=== PATIENT | female | born 1965 | race African-American/Black ===

== ENCOUNTER 2025-07-11 14:07 | Outpatient (AMB) | payer OTHER, SELFPAY ==
--- OUTSIDE RECORDS SUMMARY | 2025-07-10 23:59 | XMS_ITS | Continuity of Care Document ---
Author Organization [facility] Address [address] [place] [id number]- Care Team Providers Care Hand Stamper Name Role Phone Not on Staff, PCP Primary Care Physician Unavail able [place] [facility] [place] - 07/10/[address] [address]- Attending Physician: Johnathan Mclaughlin DO Admitting Physician: Johnathan Mclaughlin DO Referring Physician: Yamila Bruno DO Encounter Type: Pre-OutPatient One Time Allergies, Adverse Reactions, Alerts No Known Medication Allergies Medications Acetaminophen = 650 mg, By Mouth, Every 6 hours, PRN Pain , Mild, 0 Refills, Maintenance, 05/21/25 5:09:00 AM EST,Partial fill upon patient request if the prescription is for a schedule II opioid drug. Start Date: 05/21/25 Status: Ordered Medication Dispense Status: Completed Total Allowed Fills: 1 Fills Dispensed: 0 amiodarone 200 mg oral tablet See Instructions, 400 mg By Mouth 2 times a day until 06/06, then 200 mg by mouth daily., Refills 0, Maintenance, 06/04/25 1:03:00 PM EST, Instructions Replace Required Details, Partial fill upon patient request if the prescription is for a schedule II opioid drug. Start Date: 06/04/25 Status: Ordered Medication Dispense Status: Completed Total Allowed Fills: 1 Fills Dispensed: 0 Ammonium Lactate 12% 1 application, Topically, Daily in AM, 0 Refills, Maintenance, 05/21/25 5:10:00 AM EST, Partial fillupon patient request if the prescription is for a schedule II opioid drug. Start Date: 05/21/25 Status: Ordered Medication Dispense Status: Completed Total Allowed Fills: 1 Fills Dispensed: 0 apixaban 5 mg oral tablet 1 tablet = 5 mg, By Mouth, 2 times a day, # 60 tablet, 0 Refills, Maintenance, 05/21/25 1:00:00 AM EST, Tablet, Partial fill upon patient request if the prescription is for a schedule II opioid drug. Start Date: 05/21/25 Status: Ordered Medication Dispense Status: Completed Quantity: 60.0 Unit: tablet Total Allowed Fills: 1 Fills Dispensed: 0 atorvastatin 40 mg oral tablet 1 tablet = 40 mg, By Mouth, Daily, # 30 tablet, 5 Refills, Maintenance, 05/21/25 1:01:00 AM EST, Tablet, Partial fill upon patient request if the prescription is for a schedule II opioid drug. Start Date: 05/21/25 Status: Ordered Medication Dispense Status: Completed Quantity: 30.0 Unit: tablet Total Allowed Fills: 1 Fills Dispensed: 0 cholecalciferol 1000 intl units oral capsule 1 capsule = 25 mcg, By Mouth, Daily, # 75 capsule, 0 Refills, Maintenance, 05/21/25 1:01:00 AM EST, Capsule, Partial fill upon patient request if the prescription is for a schedule II opioid drug. Start Date: 05/21/25 Status: Ordered Medication Dispense Status: Completed Quantity: 75.0 Unit: capsule Total Allowed Fills: 1 Fills Dispensed: 0 cyanocobalamin 1000 mcg oral tablet 1,000 mcg, 1, tablet, By Mouth, Daily, # 90 tablet, Refills 0, Maintenance, 05/21/25 1:01:00 AM EST,Partial fill upon patient request if the prescription is for a schedule II opioid drug. Start Date: 05/21/25 Status: Ordered Medication Dispense Status: Completed Quantity: 90.0 Unit: tablet Total Allowed Fills: 1 Fills Dispensed: 0 dapagliflozin 10 mg oral tablet 1 tablet = 10 mg, By Mouth, Daily, # 30 tablet, 0 Refills, Maintenance, 05/21/25 1:02:00 AM EST, Tablet, Partial fill upon patient request if the prescription is for a schedule II opioid drug. Start Date: 05/21/25 Status: Ordered Medication Dispense Status: Completed Quantity: 30.0 Unit: tablet Total Allowed Fills: 1 Fills Dispensed: 0 diclofenac 1% topical gel See Instructions, 4g Topically Every 8 hours left knee, 0 Refills, Maintenance, 05/21/25 5:12:00 AM EST, Partial fill upon patient request if the prescription is for a schedule II opioid drug. Start Date: 05/21/25 Status: Ordered Medication Dispense Status: Completed Total Allowed Fills: 1 Fills Dispensed: 0 magnesium oxide 400 mg oral capsule 1 capsule = 400 mg, By Mouth, Daily at bedtime, 0 Refills, Maintenance, 05/21/25 5:14:00 AM EST, Partial fill upon patient request if the prescription is for a schedule II opioid drug. Start Date: 05/21/25 Status: Ordered Medication Dispense Status: Completed Total Allowed Fills: 1 Fills Dispensed: 0 metFORMIN 1000 mg oral tablet 1 tablet = 1,000 mg, By Mouth, Daily, # 180 tablet, 0 Refills, Maintenance, 07/08/25 5:53:00 PM EST, Tablet, Partial fill upon patient request if the prescription is for a schedule II opioid drug. Start Date: 07/08/25 Status: Ordered Medication Dispense Status: Completed Quantity: 180.0 Unit: tablet Total Allowed Fills: 1 Fills Dispensed: 0 Miconazole 2% Topical Powder 1 application, Topically, Daily, 0 Refills, Maintenance Start Date: 05/21/25 Status: Ordered Medication Dispense Status: Completed Total Allowed Fills: 1 Fills Dispensed: 0 Milk of Magnesia 30 mL, By Mouth, Daily, PRN as needed for constipation, 0 Refills, Maintenance, 05/21/25 5:16:00 AM EST, Partial fill upon patient request if the prescription is for a schedule II opioid drug. Start Date: 05/21/25 Status: Ordered Medication Dispense Status: Completed Total Allowed Fills: 1 Fills Dispensed: 0 Potassium Chloride = 20 mEq, By Mouth, Daily, liquid, 0 Refills, Maintenance, 05/21/25 5:17:00 AM EST, Partial fill upon patient request if the prescription is for a schedule II opioid drug. Start Date: 05/21/25 Status: Ordered Medication Dispense Status: Completed Total Allowed Fills: 1 Fills Dispensed: 0 spironolactone 25 mg oral tablet 25 mg, By Mouth, Daily, Refills 0, Maintenance, 06/04/25 1:03:00 PM EST, Partial fill upon patient request if the prescription is for a schedule II opioid drug. Start Date: 06/04/25 Status: Ordered Medication Dispense Status: Completed Total Allowed Fills: 1 Fills Dispensed: 0 torsemide 20 mg oral tablet 2 tablet = 40 mg, By Mouth, Daily, 0 Refills, Maintenance, 06/04/25 1:04:00 PM EST, Tablet, Partialfill upon patient request if the prescription is for a schedule II opioid drug. Start Date: 06/04/25 Status: Ordered Medication Dispense Status: Completed Total Allowed Fills: 1 Fills Dispensed: 0 Problem List Condition Confirmation Course Effective Dates Status Health St atus Informant Severe obesity Confirmed Active Social History Social History Type Response Smoking Status Never (less than 100 in lifetime); Interested in cessation: No; Patient wants NRT during admission No entered on: 05/21/25 Sexual Orientation Self described orien tation: ; Straight or heterosexual Sex Sex Representation Female (finding) Patient Care team information Care Team Personnel Name: Tonya Solis RN Position: [facility] RN Member Role: Primary Care Nurse Name: Not on Staff, PCP Position: [facility] Physician (General Medicine) Member Role: PCP Name: Anay Joseph RN Position: [facility] RN Member Role: Primary Care Nurse Care Team Related Persons Name: TONYA QUARLES Name: RISSA SORENSON Insurance Providers Guarantor name: Health Plan Information #: 1 [facility]ayer[facility] Payer Identifier: NA Member Number: [id number] Group Number: [id number] Subscriber Identifier: [id number] Relationship to Subscriber: self Coverage Type: Managed Care (Private) Coverage Verification Date: LYNETTE Telecom: NA Address: Health Plan Information #: 2 Payer: [employer] Payer Identifier: Member Number: [id number] Group Number: Subscriber Identifier: Relationship to Subscriber: self Coverage Type: MEDICAID Coverage Verification Date: LYNETTE Telecom: Address:
--- OUTSIDE RECORDS SUMMARY | 2025-07-10 23:59 | XMS_ITS | Continuity of Care Document ---
Author Organization [facility] Address [address] [place] [phone]- Care Team Providers Care Industrial Education Teacher Name Role Phone Not on Staff, PCP Primary Care Physician Unavail able Encounter [facility] – [place] Date(s): 06/10/25 - 07/10/[address] [address]- Attending Physician: Shmuel Barragan Admitting Physician: Shmuel Barragan Referring Physician: Shmuel Barragan Encounter Type: Triage Allergies, Adverse Reactions, Alerts No Known Medication [...] Team Personnel Name: Tonya Solis RN Position: [facility] RN Member Role: Primary Care Nurse Name: Not on Staff, PCP Position: [facility] Physician (General Medicine) Member Role: PCP Name: Anay Joseph RN Position: [facility] RN Member Role: Primary Care Nurse Care Team Related Persons Name: TONYA QUARLES Name: RISSA SORENSON Insurance Providers Guarantor name: LYNETTE Health Plan Information #: 1 Payer: [employer] HMO POS Payer Identifier: LYNETTE Member Number: [id number] Group Number: [id number] Subscriber Identifier: LYNETTE Relationship to Subscriber: self Coverage Type: Managed Care (Private) Coverage Verification Date: Telecom: Address: [facility] Plan Information #: 2 Payer: [employer] Payer Identifier: LYNETTE Member Number: [id number] Group Number: Subscriber Identifier: LYNETTE Relationship to Subscriber: self Coverage Type: MEDICAID Coverage Verification Date: Telecom: Address:
--- NOTE | 2025-07-11 14:13 | A.OFFPC_ITS ---
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 by: Self / Same As Patient Allergies No Known Allergies Allergy (Verified 07/11/25 14:14) Medication List - Last Reconciled 07/11/25 by Jeremias Harris MD amiodarone 200 mg PO DAILY apixaban (Eliquis) 5 mg PO BID atorvastatin 40 mg PO DAILY dapagliflozin propanediol (Farxiga) 10 mg PO DAILY magnesium oxide 400 mg PO DAILY metformin 1,000 mg PO DAILY metoprolol succinate ER 50 mg PO BID potassium chloride ER 20 mEq PO DAILY spironolactone 25 mg PO DAILY torsemide 20 mg PO DAILY Tobacco use date assessed: 07/11/25 Dental Screening Dental Screen Date: 07/11/25 Did you have a dental visit in the last 12 months?: Yes Did you have a dental problem in the last 6 months where you did not have access to dental care?: Yes Was dental information given to patient?: Patient has dentist HPI HPI Comments History of Present Illness Details History of Present Illness The patient is a 59-year-old female presenting to establish care with a primary care physician. Atrial Fibrillation: The patient was diagnosed with atrial fibrillation after she fell while trying to get into a truck in the [facility]. She has a cardioversion scheduled for the . Her medications for this condition include amiodarone, which was started at [facility] and continued at [facility], and apixaban (Eliquis), a blood thinner she has been taking for months. Gait Instability/History of Fall: The patient experienced a fall due to knee weakness, which prompted her initial hospitalization in the [facility]. This event led to a series of hospitalizations and rehabilitation stays in the [facility], [place], and [place] over a period of several months. She was sent to rehab because she was unable to walk. She now walks with a walker but cannot manage long distances and is unable to get into the shower at home. A diagnosis of osteoarthritis of the bilateral knees was mentioned. The patient is hoping to get home physical therapy to improve strength and mobility. Postmenopausal Bleeding: The patient, who is 59 years old, reports the onset of vaginal bleeding since Friday, which is not heavy. She is due for a Pap smear. Type 2 Diabetes Mellitus: The patient has a history of diabetes, which pre-existed her AFib diagnosis. Her medications include Farxiga 10 mg and metformin 1000 mg, though she is currently out of her metformin. Hypertension: The patient has a history of high blood pressure, which existed prior to her AFib diagnosis. She takes metoprolol succinate and has received conflicting instructions on whether to take it once or twice daily. Epistaxis: The patient has experienced nosebleeds [place]. The bleeding is intermittent and more pronounced in the morning upon waking. She uses Vicks to help moisturize her nasal passages. Dysgeusia: For the past two months, the patient has experienced a loss of taste, which has resulted in a poor appetite. This symptom started around the time she was in [place]. Constipation: The patient reports a long-standing history of constipation for years, with bowel movements occurring every two to three days. She manages this by drinking prune juice. Surgical History: - No prior surgical history reported. Medications: - Amiodarone 200 mg for atrial fibrillat ion - Apixaban (Eliquis) for atrial fibrilla tion - Atorvastatin 40 mg for high cholestero l - Farxiga 10 mg for diabetes - Magnesium oxide - Metformin 1000 mg for diabetes (rashid jones is currently out of this medication) - Metoprolol succinate for hypertension - Potassium chloride 20 mg for hypokalem ia - Torsemide (water pill) - Spironolactone (water pill) Social History: - The patient denies any history of smok ing or alcohol use. - The patient has good social support fr om her , son, and [id number]. - Functional Status: The patient uses a walker for mobility but is unable to walk long distances. - She requires sponge baths as she is un able to lift her feet high enough to get into her shower. - Durable Medical Equipment: She has a c ommode, a walker, and a wheelchair at home. - [facility] Diagnostic Results: - Mammogram: Completed in January. - Cologuard: Completed in January, results were negative. - DEXA scan: Has not been performed. Past Medical History - Atrial Fibrillation, diagnosed after a fall. - Hypertension. - Type 2 Diabetes Mellitus. - Osteoarthritis of bilateral knees. - History of ascites, treated with diure tics. - History of hypokalemia. - Multiple recent hospitalizations and r ehabilitation stays in the [facility], [place], and [place] for debility and medical management following a fall. Health Maintenance - The patient is here to establish care with a primary care physician. - The patient is due for a Pap smear. - A mammogram was completed in January. - A Cologuard test was completed in January and was negative. - The patient needs to reschedule a slee p apnea study. - The patient desires weight management assistance, which will be addressed after acute issues are managed. [facility] Family History (Updated 07/11/25 @ 14:39 by Aren Andres MA) Father Hypoglycemia High blood pressure Mother A-fib Social History Housing: House Patient Tobacco Use Status: Never used Tobacco service: No Current occupational status: unemployed Cognitive needs: Yes Hearing needs: No Vision needs: Yes (reading glasses) Questionnaire PHQ-9 Over the last 2 weeks, how often have you been bothered by any of the following problems? 1. Little interest or pleasure in doing things: not at all 2. Feeling down, depressed, or hopeless: not at all 3. Trouble falling or staying asleep, or sleeping too much: not at all 4. Feeling tired or having little energy: not at all 5. Poor appetite or overeating: not at all 6. Feeling bad about yourself - or that you are a failure or have let yourself or your family down: not at all 7. Trouble concentrating on things, such as reading the newspaper or watching television: not at all 8. Moving or speaking so slowly that other people could have noticed. Or the opposite - being so fidgety or restless that you have been moving around a lot more than usual: not at all 9. Thoughts that you would be better off or of hurting yourself in some way: not at all Total score: 0 Depression Screening Interpretation: Negative Depression Screening Done: Yes Source: Developed by Drs. Anthony Lopez, Liliam BEugenio Watson and colleagues, with an educational kayleigh from [email or web address]. Thrive Questionnaire Date Thrive assessed: 07/11/25 I am a: Patient What is your living situation today?: I have a steady place to live Within the past 12 months, did the food you bought not last and you didn't have the money to get more?: Never true Within the past 12 months, did you worry whether your food would run out before you got money to buy more?: Never true Do you have trouble paying for medicines?: No Do you have trouble getting transportation to medical appointments?: No Do you have trouble paying your heating and electricity bill?: No Do you have trouble taking care of your child, family member or friend?: Yes Do you have trouble with day-to-day activities such as bathing, preparing meals, shopping, managing finances, etc.?: Yes Are you currently unemployed and looking for a job?: No Are you interested in more education?: Yes Please select the resources that you would like help with: None THRIVE Score: 0 AUDIT C Alcohol Use Questionnaire (AUDIT-C) 1. How often do you have a drink containing alcohol?: Never 3. How often do you have six or more drinks on one occasion?: Never Total Score: 0 IVETT-7 AMB Questionnaire IVETT-7 Date IVETT - 7 assessed: 07/11/25 Feeling nervous, anxious, or on edge: 0 = Not at all Not being able to stop or control worryin = Not at all Worrying too much about different things: 0 = Not at all Trouble relaxin = Not at all Being so restless that it is hard to sit still: 0 = Not at all Becoming easily annoyed or irritable: 0 = Not at all Feeling afraid as if something awful might happen: 0 = Not at all Total IVETT-7 score (0-4 normal; 5-9 mild; 10-14 moderate; 15-21 severe): 0 Source: Developed by Drs. Anthony Lopez, Eugenio Pierce and colleagues, with an educational kayleigh from [email or web address]. Review of Systems Narrative Review of Systems - Constitutional: Reports poor appetite. - HEENT: Reports intermittent epistaxis for the past month, more prominent in the morning. - Mouth: Reports dysgeusia for the past 2 months. - Cardiovascular: History of atrial fibrillation. - Gastrointestinal: Reports chronic constipation with bowel movements every 2-3 days, managed with prune juice. - Genitourinary: Reports new onset of light vaginal bleeding since Friday. - Musculoskeletal: Reports knee weakness, difficulty walking, and inability to lift feet to enter the shower. - Integumentary: Reports a non-healing scar on her leg. - Hematologic: Denies easy bruising or bleeding from gums. - Neurological: Denies pain. - Sleep: Reports her sleep is good now. 10-point ROS reviewed and negative except as noted in HPI Physical exam (Primary Care) Vital Signs: Last Vital Signs Temp 98.1 F 07/11/25 14:24 Pulse 100 07/11/25 14:24 Resp 16 07/11/25 14:24 BP 108/63 07/11/25 14:24 Pulse Ox 99 07/11/25 14:24 Oxygen Delivery Method Room Air 07/11/25 14:24 Tobacco/Smoking Status: Tobacco use Status Tobacco use date assessed 07/11/25 07/11/25 14:15 Patient Tobacco Use Status Never used Tobacco 07/11/25 14:15 PHQ-9: PHQ-9 Score PHQ-9: Total score 0 07/11/25 14:17 Depression Screening Interpretation: Negative Thrive Assessment: Date of Thrive Assessment Date Thrive assessed 07/11/25 07/11/25 14:17 Narrative Physical Exam General: Well-appearing, in no acute distress. Vital signs: Within normal limits. HEENT: Normocephalic, atraumatic. PERRLA, EOMI. Conjunctiva clear, sclera anicteric. Oropharynx clear, mucous membranes moist. TMs intact bilaterally. Noted dryness in nasal mucosa, recommend humidifier and Vaseline application. Neck: Supple, no lymphadenopathy, no thyromegaly, no JVD or carotid bruits. Cardiovascular: irregulary irregular, normal S1/S2, no murmurs, rubs, or gallops. Peripheral pulses 2+ and symmetric. No edema. Respiratory: Lungs clear to auscultation bilaterally, no wheezes, rales, or rhonchi. Normal effort. Abdomen: Soft, non-tender, non-distended. Normoactive bowel sounds. No hepatosplenomegaly, no masses. MSK: Full range of motion, no joint swelling or deformity. . Patient uses a walker for ambulation due to bilateral knee osteoarthritis. Skin: Warm, dry, intact. No rashes, lesions, or pallor. Neuro: Alert and oriented x3. Cranial nerves II-XII intact. Strength 5/5 throughout. Sensation intact. Reflexes 2+ symmetric. . Psych: Appropriate mood and affect. Normal judgment and insight. Coding Level of Care Code New Pt Level 4 (26409) Add On Problem Visit Only Diagnoses Atrial fibrillation I48.91 Gait instability R26.81 History of fall Z91.81 Postmenopausal bleeding N95.0 Vaginal bleeding N93.9 Thickening of toenail L60.2 Complex care coordination Z71.89 Diabetes type 2 E11.9 Hypertension I10 Epistaxis R04.0 Dysgeusia R43.2 Constipation K59.00 Poor appetite R63.0 Heart failure with reduced ejection fraction I50.20 Pulmonary hypertension I27.20 Aortic valve calcification I35.9 Calcification of mitral valve I34.81 Assessment & Plan Assessment & Plan (1) Atrial fibrillation: Code(s): I48.91 - Unspecified atrial fibrillation Category: Medical (2) Gait instability: Code(s): R26.81 - Unsteadiness on feet Category: Medical (3) History of fall: Code(s): Z91.81 - History of falling Category: Medical (4) Postmenopausal bleeding: Code(s): N95.0 - Postmenopausal bleeding Category: Medical (5) Vaginal bleeding: Code(s): N93.9 - Abnormal uterine and vaginal bleeding, unspecified Category: Medical (6) Thickening of toenail: Code(s): L60.2 - Onychogryphosis Category: Medical (7) Complex care coordination: Code(s): Z71.89 - Other specified counseling Category: Medical (8) Diabetes type 2: Code(s): E11.9 - Type 2 diabetes mellitus without complications Category: Medical (9) Hypertension: Code(s): I10 - Essential (primary) hypertension Category: Medical (10) Epistaxis: Code(s): R04.0 - Epistaxis Category: Medical (11) Dysgeusia: Code(s): R43.2 - Parageusia Category: Medical (12) Constipation: Code(s): K59.00 - Constipation, unspecified Category: Medical (13) Poor appetite: Code(s): R63.0 - Anorexia Category: Medical (14) Heart failure with reduced ejection fraction: Code(s): I50.20 - Unspecified systolic (congestive) heart failure Category: Medical (15) Pulmonary hypertension: Code(s): I27.20 - Pulmonary hypertension, unspecified Category: Medical (16) Aortic valve calcification: Code(s): I35.9 - Nonrheumatic aortic valve disorder, unspecified Category: Medical (17) Calcification of mitral valve: Code(s): I34.81 - Nonrheumatic mitral (valve) annulus calcification Category: Medical Plan Consent Verbal consent was obtained from the patient to take a picture of the wound on her leg to be included in her medical record. Patient was informed and verbally consented to the use of an ambient scribe for clinic note documentation during this visit. Plan 1. New Patient Visit / Health Maintenance - A comprehensive panel of baseline labs will be ordered, including a CBC, CMP, thyroid panel, hemoglobin A1c, lipid panel, B12, folate, vitamin D, hepatitis panel, HIV, syphilis, and urinalysis. - The patient will follow up in two weeks to review lab results and medical records. - Medication reconciliation and refills will be addressed at the follow-up visit after labs are reviewed. 2. Postmenopausal Bleeding - A transvaginal and pelvic ultrasound will be ordered to evaluate the bleeding. 3. Epistaxis - The patient was advised to use a humidifier and apply Vicks or Vaseline to her nostrils to moisturize the nasal mucosa. 4. Non-Healing Wound, Lower Extremity - A referral will be placed for Podiatry/Wound Care to evaluate and manage the non-healing wound on her leg. 5. Gait Instability And Deconditioning - A referral will be placed for a community nurse navigator to arrange for home resources, including home physical therapy and a professional nursing assistant. - A referral for an orthopedic consultation will be considered after a review of records and prior knee x-rays. 6. Polypharmacy/Medication Management - No refills for potassium, spironolactone, metformin, or Jardiance will be provided until lab results are available to ensure patient safety, specifically checking renal function and potassium levels. - The patient's medication list will be overhauled after reviewing lab results and medical records. 7. Constipation - The patient was advised she can continue her current management with prune juice. - A prescription for MiraLAX was sent for as-needed use. Discussion Notes I introduced myself to the patient and her [id number] for this new patient visit. Given her complex history and lack of available medical records, I explained that the first step is to get comprehensive baseline lab work to have up-to-date data. I elaborated on the importance of not refilling certain medications, particularly spironolactone and potassium, without knowing her current kidney function and electrolyte levels, explaining the potential dangers of hyperkalemia. We discussed her various symptoms, including the nosebleeds, which I attributed to dryness and recommended a humidifier and nasal moisturization. Regarding the new-onset vaginal bleeding, I explained it is very important to evaluate this and that I would order a pelvic and transvaginal ultrasound. I informed her that I will place a referral to the community nurse navigator to help arrange home health services like PT, and a referral to podiatry for the non-healing wound on her leg. I set the expectation that we will review all the results, her records, and her medications at a follow-up visit in two weeks. The patient was asked to provide any disability paperwork to the electoral officer. Patient Instructions - Proceed to the lab for comprehensive blood and urine tests today. - For your nosebleeds, use a humidifier in your room and apply Vicks or Vaseline inside your nose with a Q-tip to keep it moist. - You will be scheduled for a pelvic and transvaginal ultrasound to investigate the cause of your vaginal bleeding. - You will be referred to a waste management specialist (podiatry) to check the wound on your leg. - Our community nurse navigator will contact you to help arrange for services at home, such as physical therapy and a professional nursing assistant. - For constipation, you may take MiraLAX as needed. - Do not take your metformin, potassium pills, or spironolactone until your lab results have been reviewed. - Please give any paperwork you have for [facility] or for your son's PFML to the electoral officer at checkout. - Schedule a follow-up appointment in two weeks to discuss your test results and next steps. Medical Decision Making The patient is a 59-year-old female with a complex medical history including atrial fibrillation, type 2 diabetes, and hypertension, who presents to establish care. She has had multiple recent hospitalizations and transitions of care, and no prior medical records were available for this visit. My primary objective for this initial visit is to safely establish a baseline understanding of her health status before making significant medication adjustments. Given the patient's polypharmacy and use of high-risk medications, including multiple diuretics (spironolactone, torsemide) and supplemental potassium, I have deferred refills pending lab results. This is critical to avoid iatrogenic hyperkalemia and acute kidney injury, as her current renal function and electrolyte status are unknown. I am also holding metformin pending renal function assessment. The patient's new onset of postmenopausal bleeding is a red flag that requires prompt investigation to rule out malignancy; therefore, a transvaginal and pelvic ultrasound is indicated. The non-healing wound on her leg, particularly in the context of diabetes, necessitates a specialist evaluation by podiatry/wound care to assess for underlying causes such as poor perfusion or infection and to guide treatment. Her significant functional decline warrants a referral to a nurse navigator to coordinate essential home services, including physical therapy, to improve her mobility, safety, and quality of life. A comprehensive lab panel will provide the necessary data to guide future medication management and address any underlying deficiencies. Follow-up in two weeks is scheduled for a thorough review of all gathered information and to formulate a comprehensive care plan. Total Time Statement 45 min Total time spent caring for the patient today includes pre-visit chart review, documentation, review of laboratory and diagnostic imaging results, medication reconciliation, medically necessary evaluation, counseling on diagnoses, care coordination, ordering appropriate tests and medications, review of tests performed by other providers, reporting test results to the patient, and communication with other healthcare providers. Orders: Orders TSH reflex Free T4 07/11/25 Z13.9 - Encounter for screening, unspecified UA CC w/rflx Micro + Cult 07/11/25 Z13.9 - Encounter for screening, unspecified Vitamin B12 and Folate 07/11/25 Z13.9 - Encounter for screening, unspecified Hemoglobin A1c 07/11/25 Z13.9 - Encounter for screening, unspecified Magnesium 07/11/25 Z13.9 - Encounter for screening, unspecified Hepatitis B Surface Antibody 07/11/25 Z13.9 - Encounter for screening, unspecified Complete Blood Count Auto Diff 07/11/25 Z13.9 - Encounter for screening, unspecified Hepatitis B Surface Antigen 07/11/25 Z13.9 - Encounter for screening, unspecified Syphilis Screen 07/11/25 Z13.9 - Encounter for screening, unspecified Comprehensive Met. Panel 07/11/25 Z13.9 - Encounter for screening, unspecified Hepatitis C Antibody 07/11/25 Z13.9 - Encounter for screening, unspecified HIV Ab/Ag 07/11/25 Z13.9 - Encounter for screening, unspecified Lipid Panel 07/11/25 Z13.9 - Encounter for screening, unspecified Vitamin D 25-OH (D2 and D3) 07/11/25 Z13.9 - Encounter for screening, unspecified US pelvic and transvaginal 07/11/25 N93.9 - Abnormal uterine and vaginal bleeding, unspecified AMB EKG-In Office 07/11/25 Z13.6 - Encounter for screening for cardiovascular disorders RT home sleep study Today G47.00 - Insomnia, unspecified Referrals Podiatry Referral L60.2 - Onychogryphosis Cardiology Referral I27.20 - Pulmonary hypertension, unspecified, I34.81 - Nonrheumatic mitral (valve) annulus calcification, I35.9 - Nonrheumatic aortic valve disorder, unspecified, I48.91 - Unspecified atrial fibrillation, I50.20 - Unspecified systolic (congestive) heart failure Sleep Medicine Referral G47.00 - Insomnia, unspecified, I27.20 - Pulmonary hypertension, unspecified Nurse Navigator Referral Z71.89 - Other specified counseling Nephrology Referral N18.9 - Chronic kidney disease, unspecified Medications: New polyethylene glycol 3350 (Miralax) 17 grams PO DAILY 238 grams 0RF amiodarone 200 mg PO DAILY 30 tabs 0RF dapagliflozin propanediol (Farxiga) 10 mg PO DAILY 90 tabs 0RF spironolactone 25 mg PO DAILY 90 tabs 0RF torsemide 20 mg PO DAILY 90 tabs 0RF metformin 750 mg PO DAILY 90 tabs 0RF
[2025-07-11 14:24] VITALS: BP 108/63; PULSE 100; RESP 16; TEMP 36.7; O2SAT 99
--- OUTSIDE RECORDS SUMMARY | 2025-07-11 16:25 | XMS_ITS | Encounter Summary ---
Author Organization [facility] Address [address] [place] [address] Care Team Providers Care Dyed Raw Stock Blower Feeder Name Role Phone Sepideh Mcmahon Primary Care Provider [phone] Encounter Details Date Type Department Care Team (Late st Contact Info) Description 06/08/[address] [facility] - Main Lab 299 [facility] [place] [address] Brandt Miles MD [address] [place] [address] [address] [place], [address] Essential (primary) hypertension Social History Tobacco Use Types Packs/Day Years Used Date Smoking Tobacco: Never Assessed Comments No Sex and Gender Information Value Date Recorded Sex Assigned at Not on file Legal Sex Female 1:29 PM EDT Gender Identity Not on file Sexual Orientation Not on file documented as of this encounter Plan of Treatment Not on file documented as of this encounter Procedures Procedure Name Priority Date/Time Associated Diagnosis Comments COMPLETE BLOOD COUNT Routine 06/08/2025 6:11 AM EST Essential (primary) hypertension COMPREHENSIVE METABOLIC PANEL Routine 06/08/2025 6:11 AM EST Essential (primary) hypertension documented in this encounter Results * (ABNORMAL) Comprehensive metabolic panel (06/08/2025 6:11 AM EST) Sodium 137 133 - 145 mmol/L 06/08/2025 11:55 AM EST [facility] Potassium 4.0 3.5 - 5.5 mmol/L 06/08/2025 11:55 AM [facility] Chloride 100 96 - 110 mmol/L 06/08/2025 11:55 AM [facility] CO2 27 21 - 32 mmol/L 06/08/2025 11:55 AM [facility] Anion Gap 10 3 - 11 06/08/2025 11:55 AM [facility] Glucose 129(H) 70 - 100 mg/dL 06/08/2025 11:55 AM [facility] BUN 17 5 - 25 mg/dL 06/08/2025 11:55 AM [facility] Creatinine 1.20(H) 0.50 - 1.10 mg/dL 06/08/2025 11:55 AM [facility] eGFR 52(L) >=60 mL/min/1. 73m2 06/08/2025 11:55 AM [facility] Comment:Calculation based on the Chronic Kidney Disease Epidemiology Collaboration (CKD-EPI) equation refit without adjustment for race. BUN/Creatinine Ratio 14.2 06/08/2025 11:55 AM [facility] Calcium 9.1 8.5 - 10.5 mg/dL 06/08/2025 11:55 AM [facility] AST (SGOT) 31 10 - 42 unit/L 06/08/2025 11:55 AM [facility] ALT (SGPT) 17 10 - 60 unit/L 06/08/2025 11:55 AM [facility] Alkaline Phosphatase 130(H) 42 - 121 unit/L 06/08/2025 11:55 AM [facility] Total Protein 7.1 6.0 - 8.0 g/dL 06/08/2025 11:55 AM [facility] Albumin 3.3 3.2 - 5.0 g/dL 06/08/2025 11:55 AM [facility] Total Bilirubin 1.7(H) 0.0 - 1.4 mg/dL 06/08/2025 11:55 AM [facility] Blood Venous blood specimen / Unknown Venipuncture / Unknown 06/08/2025 6:11 AM EST 06/08/2025 10:37 AM EST us Brandt Miles MD LAB BLOOD ORDERABLES Final Resul t [facility] [address] [place] [address], * (ABNORMAL) Complete blood count (06/08/2025 6:11 AM EST) WBC 5.7 4.8 - 10.8 K/mcL LAB HEMETOLOGY METHOD 06/08/2025 11:22 AM [facility] RBC 4.00 3.80 - 4.80 M/mcL LAB HEMETOLOGY METHOD 06/08/2025 11:22 AM [facility] Hemoglobin 11.2(L) 11.5 - 16.0 g/dL LAB HEMETOLOGY METHOD 06/08/2025 11:22 AM [facility] Hematocrit 36.6 35.0 - 47.0 % LAB HEMETOLOGY METHOD 06/08/2025 11:22 AM [facility] MCV 90.8 79.0 - 98.0 FL LAB HEMETOLOGY METHOD 06/08/2025 11:22 AM [facility] MCH 27.8 27.0 - 32.0 pcg LAB HEMETOLOGY METHOD 06/08/2025 11:22 AM [facility] MCHC 30.6(L) 32.0 - 37.0 g/dL LAB HEMETOLOGY METHOD 06/08/2025 11:22 AM [facility] RDW 17.2(H) 11.0 - 15.0 % LAB HEMETOLOGY METHOD 06/08/2025 11:22 AM EST [facility] Platelets 292 130 - 400 K/mcL LAB HEMETOLOGY METHOD 06/08/2025 11:22 AM [facility] MPV 11.0 7.0 - 11.0 FL LAB HEMETOLOGY METHOD 06/08/2025 11:22 AM EST [facility] NRBC 0.0 <1.0 % LAB HEMETOLOGY METHOD 06/08/2025 11:22 AM EST [facility] NRBC Absolute 0.00 <0.10 K/mcL LAB HEMETOLOGY METHOD 06/08/2025 11:22 AM [facility] Blood Venous blood specimen / Unknown Venipuncture / Unknown 06/08/2025 6:11 AM EST 06/08/2025 10:37 AM EST us Brandt Miles MD LAB BLOOD ORDERABLES Final Resul t [facility] [address] [place] [address], documented in this encounter Visit Diagnoses Diagnosis Essential (primary) hypertension Unspecified essential hypertension documented in this encounter Care Teams Dyed Raw Stock Blower Feeder Relationship Specialty Start Date End Date Sepideh Mcmahon PA [phone] [facility] [address] PCP - General 12/01/24 documented as of this encounter
--- OUTSIDE RECORDS SUMMARY | 2025-07-11 16:25 | XMS_ITS | Encounter Summary ---
Author Organization [facility] Address [address] [place] [address] Care Team Providers Care Make Up Arranger Name Role Phone Sepideh Mcmahon Primary Care Provider [phone] Encounter Details Date Type Department Care Team (Late st Contact Info) Description 07/01/2025 Lab Requisition [facility] - Main Lab 299 [facility] [place] [address] Brandt Miles MD [address] [facility] [address] [place], [address] Essential (primary) hypertension Social History Tobacco [...] on file documented as of this encounter Visit Diagnoses Diagnosis Essential (primary) hypertension Unspecified essential hypertension documented in this encounter Care Teams Make Up Arranger Relationship Specialty Start Date End Date Sepideh Mcmahon PA [phone] [facility] [address] PCP - General 12/01/24 documented as of this encounter
--- OUTSIDE RECORDS SUMMARY | 2025-07-11 16:25 | XMS_ITS | Clinical Summary ---
Author Organization [facility] Address [address] [place] [address] Phone Care Team Providers Care Excellence Manager Name Role Phone Sepideh Mcmahon Primary Care Provider [phone] Allergies No known active allergies Medications glipiZIDE (GLUCOTROL) 5 mg tablet Take 1 tablet (5 mg total) by mouth 2 (two) times a day before meals. Active losartan (COZAAR) 25 mg tablet Take 1 tablet (25 mg total) by mouth 1 (one) time each day. Active SITagliptin phosphate 100 mg tablet 100 mg, metFORMIN 1,000 mg tablet extended release 24hr 1,000 mg Take 2 tablets by mouth 1 (one) time each day. Active Encounters Date Type Department Care Team Description 07/01/2025 Lab Requisition [facility] - Main Lab [address] [place] [id number] Brandt Miles MD Essential (primary) hypertension 06/24/2025 Lab Requisition [facility] [address] [place] [phone] Brandt Miles MD Essential (primary) hypertension 06/17/2025 Lab Requisition [facility] [address] [place] [address] Brandt Miles MD Essential (primary) hypertension 06/10/2025 Lab Requisition [facility] [address] [place] [address] Brandt Miles MD Essential (primary) hypertension 06/08/2025 Lab Requisition [facility] - Main Lab 299 [facility] [place] [address] Brandt Miles MD Essential (primary) hypertension from Last 3 Months Family History Medical History Relation Name Comments Breast cancer Father's Sister Relation Name Status Comments Father's Sister Alive Social History Tobacco Use Types Packs/Day Years Used Date Smoking Tobacco: Never Assessed Comments No Sex and Gender Information Value Date Recorded Sex Assigned at Not on file Legal Sex Female 1:29 PM EDT Gender Identity Not on file Sexual Orientation Not on file Obstetrics History Para Term AB IAB SAB Ectopic Multiple Livin g Live Births 3 Last Filed Vital Signs Vital Sign Reading Time Taken Comments Blood Pressure 140/70 02/03/2025 10:06 AM EDT Pulse - - Temperature - - Respiratory Rate - - Oxygen Saturation - - Inhaled Oxygen Concentration - - Weight 134 kg (296 lb) 02/03/2025 10:06 AM EDT Height 167.6 cm (5' 6 ) 02/03/2025 10:06 AM EDT Body Mass Index 47.78 02/03/2025 10:06 AM EDT Plan of Treatment Health Maintenance Due Date Last Done Comments Colorectal Cancer Screening: Colonoscopy 1964 DTaP,Tdap,and Td Vaccines (1 - Tdap) 10/31/1983 Pneumococcal Vaccine: 50+ Years (1 of 2 - PCV) 10/31/1983 Cervical Cancer Screening: Pap Smear 1985 RSV Immunization Adult Patients (1 - Risk 50-74 years 1-dose series) 2014 Zoster Vaccines (1 of 2) 2014 Depression Screening 07/14/2024 Cholesterol Screening (Lipid Panel) 11/08/2024 HIV Screening 11/08/2024 Hepatitis C Screening 11/08/2024 Social Influencers of Health Screening 11/08/2024 COVID-19 Vaccine (1 - season) 2025 Influenza Vaccine (#1) 2025 Hypertension/CHF/CAD Annual BMP Blood Test 06/27/2026 06/27/2025, 06/20/2025, 06/13/2025, Additional history exists Breast Cancer Screening 01/07/2027 01/07/2025 HIB Vaccines Aged Out No longer eligi ble based on patient's age to complete this topic HPV Vaccines Aged Out No longer eligi ble based on patient's age to complete this topic Hepatitis A Vaccines Aged Out No long er eligible based on patient's age to complete this topic Hepatitis B Vaccines Aged Out No long er eligible based on patient's age to complete this topic IPV Vaccines Aged Out No longer eligi ble based on patient's age to complete this topic MMR Vaccines Aged Out No longer eligi ble based on patient's age to complete this topic Meningococcal ACWY Vaccine Aged Out N o longer eligible based on patient's age to complete this topic Meningococcal B Vaccine Aged Out No l onger eligible based on patient's age to complete this topic RSV Immunization Patients Under 20 months Aged Out No longer eligible based on patient's age to complete this topic Varicella Vaccines Aged Out No longer eligible based on patient's age to complete this topic Procedures Procedure Name Priority Date/Time Associated Diagnosis Comments BASIC METABOLIC PANEL Routine 06/27/2025 7:03 AM EST Essential (primary) hypertension COMPLETE BLOOD COUNT Routine 06/27/2025 7:03 AM EST Essential (primary) hypertension BASIC METABOLIC PANEL Routine 06/20/2025 7:09 AM EST Essential (primary) hypertension COMPLETE BLOOD COUNT Routine 06/20/2025 7:09 AM EST Essential (primary) hypertension BASIC METABOLIC PANEL Routine 06/13/2025 7:20 AM EST Essential (primary) hypertension COMPLETE BLOOD COUNT Routine 06/13/2025 7:20 AM EST Essential (primary) hypertension COMPREHENSIVE METABOLIC PANEL Routine 06/08/2025 6:11 AM EST Essential (primary) hypertension COMPLETE BLOOD COUNT Routine 06/08/2025 6:11 AM EST Essential (primary) hypertension MG MAMMO DIGITAL SCREENING W ZANDER BILAT Routine 01/07/2025 9:28 AM EDT Encounter for screening mammogram for breast cancer from Last 3 Months or Most Recently Relevant to Health Maintenance Results * (ABNORMAL) Complete blood count (06/27/2025 7:03 AM EST) Only the most recent of4 resultswithin the time period is included. WBC 3.7(L) 4.8 - 10.8 K/mcL LAB HEMETOLOGY METHOD 06/27/2025 1:35 PM [facility] RBC 3.90 3.80 - 4.80 M/mcL LAB HEMETOLOGY METHOD 06/27/2025 1:35 PM [facility] Hemoglobin 11.2(L) 11.5 - 16.0 g/dL LAB HEMETOLOGY METHOD 06/27/2025 1:35 PM [facility] Hematocrit 36.3 35.0 - 47.0 % LAB HEMETOLOGY METHOD 06/27/2025 1:35 PM [facility] MCV 92.1 79.0 - 98.0 FL LAB HEMETOLOGY METHOD 06/27/2025 1:35 PM [facility] MCH 28.4 27.0 - 32.0 pcg LAB HEMETOLOGY METHOD 06/27/2025 1:35 PM [facility] MCHC 30.9(L) 32.0 - 37.0 g/dL LAB HEMETOLOGY METHOD 06/27/2025 1:35 PM [facility] RDW 18.3(H) 11.0 - 15.0 % LAB HEMETOLOGY METHOD 06/27/2025 1:35 PM [facility] Platelets 234 130 - 400 K/mcL LAB HEMETOLOGY METHOD 06/27/2025 1:35 PM [facility] MPV 10.3 7.0 - 11.0 FL LAB HEMETOLOGY METHOD 06/27/2025 1:35 PM [facility] NRBC 0.0 <1.0 % LAB HEMETOLOGY METHOD 06/27/2025 1:35 PM [facility] NRBC Absolute 0.00 <0.10 K/mcL LAB HEMETOLOGY METHOD 06/27/2025 1:35 PM [facility] Blood Venous blood specimen / Unknown Venipuncture / Unknown 06/27/2025 7:03 AM EST 06/27/2025 11:38 AM EST us Brandt Miles MD LAB BLOOD ORDERABLES Final Resul t [facility] [address] [place] [address], [place] [phone] * (ABNORMAL) Basic metabolic panel (06/27/2025 7:03 AM EST) Only the most recent of3 resultswithin the time period is included. Sodium 135 133 - 145 mmol/L 06/27/2025 1:17 PM [facility] Potassium 4.2 3.5 - 5.5 mmol/L 06/27/2025 1:17 PM [facility] Chloride 94(L) 96 - 110 mmol/L 06/27/2025 1:17 PM [facility] CO2 30 21 - 32 mmol/L 06/27/2025 1:17 PM [facility] Anion Gap 11 3 - 11 06/27/2025 1:17 PM [facility] Glucose 182(H) 70 - 100 mg/dL 06/27/2025 1:17 PM [facility] BUN 17 5 - 25 mg/dL 06/27/2025 1:17 PM [facility] Creatinine 1.51(H) 0.50 - 1.10 mg/dL 06/27/2025 1:17 PM [facility] eGFR 39(L) >=60 mL/min/1. 73m2 06/27/2025 1:17 PM EST [facility] Comment:Calculation based on the Chronic Kidney Disease Epidemiology Collaboration (CKD-EPI) equation refit without adjustment for race. BUN/Creatinine Ratio 11.3 06/27/2025 1:17 PM [facility] Calcium 8.5 8.5 - 10.5 mg/dL 06/27/2025 1:17 PM [facility] Blood Venous blood specimen / Unknown Venipuncture / Unknown 06/27/2025 7:03 AM EST 06/27/2025 11:38 AM EST us Brandt Miles MD LAB BLOOD ORDERABLES Final Resul t [facility] [address] [place] [address], * (ABNORMAL) Comprehensive metabolic panel (06/08/2025 6:11 AM EST) Sodium 137 133 - 145 mmol/L 06/08/2025 11:55 AM [facility] Potassium 4.0 3.5 - 5.5 mmol/L 06/08/2025 11:55 AM [facility] Chloride 100 96 - 110 mmol/L 06/08/2025 11:55 AM [facility] CO2 27 21 - 32 mmol/L 06/08/2025 11:55 AM [facility] Anion Gap 10 3 - 11 06/08/2025 11:55 AM [facility] Glucose 129(H) 70 - 100 mg/dL 06/08/2025 11:55 AM [facility] BUN 17 5 - 25 mg/dL 06/08/2025 11:55 AM [facility] Creatinine 1.20(H) 0.50 - 1.10 mg/dL 06/08/2025 11:55 AM [facility] eGFR 52(L) >=60 mL/min/1. 73m2 06/08/2025 11:55 AM [facility] Comment:Calculation based on the Chronic Kidney Disease Epidemiology Collaboration (CKD-EPI) equation refit without adjustment for race. BUN/Creatinine Ratio 14.2 06/08/2025 11:55 AM [facility] Calcium 9.1 8.5 - 10.5 mg/dL 06/08/2025 11:55 AM [facility] AST (SGOT) 31 10 - 42 unit/L 06/08/2025 11:55 AM [facility] ALT (SGPT) 17 10 - 60 unit/L 06/08/2025 11:55 AM [facility] Alkaline Phosphatase 130(H) 42 - 121 unit/L 06/08/2025 11:55 AM [facility] Total Protein 7.1 6.0 - 8.0 g/dL 06/08/2025 11:55 AM [facility] Albumin 3.3 3.2 - 5.0 g/dL 06/08/2025 11:55 AM [facility] Total Bilirubin 1.7(H) 0.0 - 1.4 mg/dL 06/08/2025 11:55 AM [facility] Blood Venous blood specimen / Unknown Venipuncture / Unknown 06/08/2025 6:11 AM EST 06/08/2025 10:37 AM EST us Brandt Miles MD LAB BLOOD ORDERABLES Final Resul t [facility] [address] [place] [address], * MG Mammo Digital Screening w Zander bilat (01/07/2025 9:28 AM EDT) Anatomical Region Laterality Modality Breast Bilateral Mammography 01/07/2025 12:3 5 PM EDT Impressions 01/07/2025 12:37 PM EDT No evidence of breast malignancy. BI-RADS CATEGORY: 1 - NEGATIVE RECOMMENDATION: Screening bilateral mammogram is recommended in 1 year. Mammo Location: [facility], [address] [place] [address], [id number], . -------- FINAL REPORT -------- Dictated By: Lo Mitchell Dictated Date: 01/07/2025 12:35 ET Assigned Physician: Lo Mitchell Reviewed and Electronically Signed By: Lo Mitchell Signed Date: 01/07/2025 12:37 ET Workstation ID: [id number] Transcribed By: Self Edit Transcribed Date: 01/07/2025 12:35 ET Narrative 01/07/2025 12:37 PM EDT CLINICAL: 59 years old, Female, routine annual exam. COMPARISON: No prior studies are available. TECHNIQUE: Bilateral MLO and CC views were obtained digitally with 3-D mammogram (digital breast tomosynthesis). Computer-aided detection was utilized in evaluation of this exam (CAD). FINDINGS: There is no evidence of suspicious mass or architectural distortion. No worrisome calcifications are evident. BREAST DENSITY: A - The breasts are almost entirely fatty. Procedure Note Lo Mitchell MD - 01/07/2025 CLINICAL: 59 years old, Female, routine annual exam. COMPARISON: No prior studies are available. TECHNIQUE: Bilateral MLO and CC views were obtained digitally with 3-Dmammogram (digital breast tomosynthesis). Computer-aided detection wasutilized in evaluation of this exam (CAD). FINDINGS: There is no evidence of suspicious mass or architectural distortion. Noworrisome calcifications are evident. BREAST DENSITY: A - The breasts are almost entirely fatty. IMPRESSION: No evidence of breast malignancy. BI-RADS CATEGORY: 1 - NEGATIVE RECOMMENDATION: Screening bilateral mammogram is recommended in 1 year. Mammo Location: [facility], [address] [place] [address], [id number], . -------- FINAL REPORT -------- Dictated By: Lo Mitchell Dictated Date: 01/07/2025 12:35 ET Assigned Physician: Lo Mitchell Reviewed and Electronically Signed By: Lo Mitchell Signed Date: 01/07/2025 12:37 ET Workstation ID: [id number] Transcribed By: Self Edit Transcribed Date: 01/07/2025 12:35 ET us Self Referral Sppl IMG BI PROCEDURES Final Resul t from Last 3 Months or Most Recently Relevant to Health Maintenance Insurance [facility] Care Teams Excellence Manager Relationship Specialty Start Date End Date Sepideh Mcmahon PA [address] [facility] [address] PCP - General 12/01/24
--- OUTSIDE RECORDS SUMMARY | 2025-07-11 16:25 | XMS_ITS | Encounter Summary ---
Author Organization [facility] Address [address] [place] [address] Care Team Providers Care Prepared Foods Team Leader Name Role Phone Sepideh Mcmahon Primary Care Provider [phone] Encounter Details Date Type Department Care Team (Late st Contact Info) Description 06/10/2025 Lab Requisition [facility] - Main Lab 299 [facility] [place] [address] Brandt Miles MD [address] [place] [address] [address] [place], [address] Essential (primary) hypertension Social History Tobacco [...] Associated Diagnosis Comments COMPLETE BLOOD COUNT Routine 06/13/2025 7:20 AM EST Essential (primary) hypertension BASIC METABOLIC PANEL Routine 06/13/2025 7:20 AM EST Essential (primary) hypertension documented in this encounter Results * (ABNORMAL) Basic metabolic panel (06/13/2025 7:20 AM EST) Sodium 141 133 - 145 mmol/L 06/13/2025 12:31 PM EST [facility] Potassium 4.0 3.5 - 5.5 mmol/L 06/13/2025 12:31 PM [facility] Chloride 100 96 - 110 mmol/L 06/13/2025 12:31 PM [facility] CO2 30 21 - 32 mmol/L 06/13/2025 12:31 PM [facility] Anion Gap 11 3 - 11 06/13/2025 12:31 PM [facility] Glucose 154(H) 70 - 100 mg/dL 06/13/2025 12:31 PM [facility] BUN 13 5 - 25 mg/dL 06/13/2025 12:31 PM [facility] Creatinine 1.39(H) 0.50 - 1.10 mg/dL 06/13/2025 12:31 PM [facility] eGFR 44(L) >=60 mL/min/1. 73m2 06/13/2025 12:31 PM [facility] Comment:Calculation based on the Chronic Kidney Disease Epidemiology Collaboration (CKD-EPI) equation refit without adjustment for race. BUN/Creatinine Ratio 9.4 06/13/2025 12:31 PM [facility] Calcium 9.5 8.5 - 10.5 mg/dL 06/13/2025 12:31 PM [facility] Blood Venous blood specimen / Unknown Venipuncture / Unknown 06/13/2025 7:20 AM EST 06/13/2025 10:37 AM EST us Brandt Miles MD LAB BLOOD ORDERABLES Final Resul t [facility] [address] [place] [address], * (ABNORMAL) Complete blood count (06/13/2025 7:20 AM EST) WBC 5.4 4.8 - 10.8 K/mcL LAB HEMETOLOGY METHOD 06/13/2025 11:34 AM [facility] RBC 4.00 3.80 - 4.80 M/[facility] LAB HEMETOLOGY METHOD 06/13/2025 11:34 AM [facility] Hemoglobin 11.5 11.5 - 16.0 g/dL LAB HEMETOLOGY METHOD 06/13/2025 11:34 AM [facility] Hematocrit 37.0 35.0 - 47.0 % LAB HEMETOLOGY METHOD 06/13/2025 11:34 AM [facility] MCV 91.8 79.0 - 98.0 FL LAB HEMETOLOGY METHOD 06/13/2025 11:34 AM [facility] MCH 28.5 27.0 - 32.0 pcg LAB HEMETOLOGY METHOD 06/13/2025 11:34 AM [facility] MCHC 31.1(L) 32.0 - 37.0 g/dL LAB HEMETOLOGY METHOD 06/13/2025 11:34 AM [facility] RDW 17.3(H) 11.0 - 15.0 % LAB HEMETOLOGY METHOD 06/13/2025 11:34 AM [facility] Platelets 313 130 - 400 K/[facility] LAB HEMETOLOGY METHOD 06/13/2025 11:34 AM [facility] MPV 10.3 7.0 - 11.0 FL LAB HEMETOLOGY METHOD 06/13/2025 11:34 AM [facility] NRBC 0.0 <1.0 % LAB HEMETOLOGY METHOD 06/13/2025 11:34 AM [facility] NRBC Absolute 0.00 <0.10 K/[facility] LAB HEMETOLOGY METHOD 06/13/2025 11:34 AM [facility] Blood Venous blood specimen / Unknown Venipuncture / Unknown 06/13/2025 7:20 AM EST 06/13/2025 10:37 AM EST us Brandt Miles MD LAB BLOOD ORDERABLES Final Resul t [facility] ([facility]) [facility] [address] [place] [address], [place] [phone] documented in this encounter Visit Diagnoses Diagnosis Essential (primary) hypertension Unspecified essential hypertension documented in this encounter Care Teams Prepared Foods Team Leader Relationship Specialty Start Date End Date Sepideh Mcmahon PA 481[address] [facility] [address] PCP - General 12/01/24 documented as of this encounter
--- OUTSIDE RECORDS SUMMARY | 2025-07-11 16:25 | XMS_ITS ---
Author Name [facility] Organization Unknown Encounters Encounter Type Encounter Reason Primary Diagnosis Location Date Ambulatory [facility] 04/08/2025 Ambulatory [facility] 02/10/2025 Ambulatory [facility] 02/10/2025 Ambulatory [facility] [place] 02/10/2025
--- OUTSIDE RECORDS SUMMARY | 2025-07-11 16:25 | XMS_ITS | Encounter Summary ---
Author Organization [facility] Address [address] [place] [address] Care Team Providers Care Audiovisual Equipment Operator Name Role Phone Sepideh Mcmahon Primary Care Provider [phone] Encounter Details Date Type Department Care Team (Late st Contact Info) Description 06/24/2025 Lab Requisition [facility] - Main Lab [address] Pending Sale [place] [facility] [place] [address] Brandt Miles MD [address] [place] [address] [address] [place], [phone] Essential (primary) hypertension Social History Tobacco [...] Associated Diagnosis Comments COMPLETE BLOOD COUNT Routine 06/27/2025 7:03 AM EST Essential (primary) hypertension BASIC METABOLIC PANEL Routine 06/27/2025 7:03 AM EST Essential (primary) hypertension documented in this encounter Results * (ABNORMAL) Basic metabolic panel (06/27/2025 7:03 AM EST) Sodium 135 133 - 145 mmol/L 06/27/2025 1:17 PM EST [facility] Potassium 4.2 3.5 - 5.5 mmol/L 06/27/2025 1:17 PM [facility] Chloride 94(L) 96 - 110 mmol/L 06/27/2025 1:17 PM [facility] CO2 30 21 - 32 mmol/L 06/27/2025 1:17 PM [facility] Anion Gap 11 3 - 11 06/27/2025 1:17 PM [facility] Glucose 182(H) 70 - 100 mg/dL 06/27/2025 1:17 PM [facility] BUN 17 5 - 25 mg/dL 06/27/2025 1:17 PM [facility] Creatinine 1.51(H) 0.50 - 1.10 mg/dL 06/27/2025 1:17 PM [facility] eGFR 39(L) >=60 mL/min/1. 73m2 06/27/2025 1:17 PM [facility] Comment:Calculation based on the Chronic Kidney Disease Epidemiology Collaboration (CKD-EPI) equation refit without adjustment for race. BUN/Creatinine Ratio 11.3 06/27/2025 1:17 PM [facility] Calcium 8.5 8.5 - 10.5 mg/dL 06/27/2025 1:17 PM [facility] Blood Venous blood specimen / Unknown Venipuncture / Unknown 06/27/2025 7:03 AM EST 06/27/2025 11:38 AM EST us Brandt Miles MD LAB BLOOD ORDERABLES Final Resul t [facility] [address] [place] [address], * (ABNORMAL) Complete blood count (06/27/2025 7:03 AM EST) WBC 3.7(L) 4.8 - 10.8 K/mcL LAB HEMETOLOGY METHOD 06/27/2025 1:35 PM [facility] RBC 3.90 3.80 - 4.80 M/mcL LAB HEMETOLOGY METHOD 06/27/2025 1:35 PM [facility] Hemoglobin 11.2(L) 11.5 - 16.0 g/dL LAB HEMETOLOGY METHOD 06/27/2025 1:35 PM [facility] Hematocrit 36.3 35.0 - 47.0 % LAB HEMETOLOGY METHOD 06/27/2025 1:35 PM [facility] MCV 92.1 79.0 - 98.0 FL LAB HEMETOLOGY METHOD 06/27/2025 1:35 PM [facility] MCH 28.4 27.0 - 32.0 pcg LAB HEMETOLOGY METHOD 06/27/2025 1:35 PM [facility] MCHC 30.9(L) 32.0 - 37.0 g/dL LAB HEMETOLOGY METHOD 06/27/2025 1:35 PM [facility] RDW 18.3(H) 11.0 - 15.0 % LAB HEMETOLOGY METHOD 06/27/2025 1:35 PM [facility] Platelets 234 130 - 400 K/mcL LAB HEMETOLOGY METHOD 06/27/2025 1:35 PM [facility] MPV 10.3 7.0 - 11.0 FL LAB HEMETOLOGY METHOD 06/27/2025 1:35 PM [facility] NRBC 0.0 <1.0 % LAB HEMETOLOGY METHOD 06/27/2025 1:35 PM [facility] NRBC Absolute 0.00 <0.10 K/mcL LAB HEMETOLOGY METHOD 06/27/2025 1:35 PM [facility] Blood Venous blood specimen / Unknown Venipuncture / Unknown 06/27/2025 7:03 AM EST 06/27/2025 11:38 AM EST us Brandt Miles MD LAB BLOOD ORDERABLES Final Resul t [facility] ([facility]) [facility] [address] [place] [address], documented in this encounter Visit Diagnoses Diagnosis Essential (primary) hypertension Unspecified essential hypertension documented in this encounter Care Teams Audiovisual Equipment Operator Relationship Specialty Start Date End Date Sepideh Mcmahon PA [phone] [facility] [address] [facility] [address] PCP - General 12/01/24 documented as of this encounter
--- OUTSIDE RECORDS SUMMARY | 2025-07-11 16:25 | XMS_ITS | Encounter Summary ---
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 Name Role Phone Sepideh Mcmahon Primary Care Provider [phone] Encounter Details Date Type Department Care Team (Late st Contact Info) Description 06/17/2025 Lab Requisition [facility] - Main Lab [address] [facility] [place] [address] Brandt Miles MD [address] [place] [address] [address] [place], [phone] Essential (primary) hypertension Social History Tobacco [...] Associated Diagnosis Comments COMPLETE BLOOD COUNT Routine 06/20/2025 7:09 AM EST Essential (primary) hypertension BASIC METABOLIC PANEL Routine 06/20/2025 7:09 AM EST Essential (primary) hypertension documented in this encounter Results * (ABNORMAL) Basic metabolic panel (06/20/2025 7:09 AM EST) Sodium 140 133 - 145 mmol/L 06/20/2025 1:03 PM EST [facility]) [facility] Potassium 3.8 3.5 - 5.5 mmol/L 06/20/2025 1:03 PM [facility] Chloride 99 96 - 110 mmol/L 06/20/2025 1:03 PM [facility] CO2 30 21 - 32 mmol/L 06/20/2025 1:03 PM [facility] Anion Gap 11 3 - 11 06/20/2025 1:03 PM [facility] Glucose 165(H) 70 - 100 mg/dL 06/20/2025 1:03 PM [facility] BUN 13 5 - 25 mg/dL 06/20/2025 1:03 PM [facility] Creatinine 1.52(H) 0.50 - 1.10 mg/dL 06/20/2025 1:03 PM [facility] eGFR 39(L) >=60 mL/min/1. 73m2 06/20/2025 1:03 PM [facility] Comment:Calculation based on the Chronic Kidney Disease Epidemiology Collaboration (CKD-EPI) equation refit without adjustment for race. BUN/Creatinine Ratio 8.6 06/20/2025 1:03 PM [facility] Calcium 9.3 8.5 - 10.5 mg/dL 06/20/2025 1:03 PM [facility] Blood Venous blood specimen / Unknown Venipuncture / Unknown 06/20/2025 7:09 AM EST 06/20/2025 12:06 PM EST us Brandt Miles MD LAB BLOOD ORDERABLES Final Resul t [facility] [address] [place] [address], * (ABNORMAL) Complete blood count (06/20/2025 7:09 AM EST) WBC 5.5 4.8 - 10.8 K/mcL LAB HEMETOLOGY METHOD 06/20/2025 1:13 PM [facility] RBC 3.90 3.80 - 4.80 M/mcL LAB HEMETOLOGY METHOD 06/20/2025 1:13 PM [facility] Hemoglobin 10.9(L) 11.5 - 16.0 g/dL LAB HEMETOLOGY METHOD 06/20/2025 1:13 PM [facility] Hematocrit 35.7 35.0 - 47.0 % LAB HEMETOLOGY METHOD 06/20/2025 1:13 PM [facility] MCV 92.2 79.0 - 98.0 FL LAB HEMETOLOGY METHOD 06/20/2025 1:13 PM [facility] MCH 28.2 27.0 - 32.0 pcg LAB HEMETOLOGY METHOD 06/20/2025 1:13 PM [facility] MCHC 30.5(L) 32.0 - 37.0 g/dL LAB HEMETOLOGY METHOD 06/20/2025 1:13 PM [facility] RDW 17.9(H) 11.0 - 15.0 % LAB HEMETOLOGY METHOD 06/20/2025 1:13 PM [facility] Platelets 263 130 - 400 K/mcL LAB HEMETOLOGY METHOD 06/20/2025 1:13 PM [facility] MPV 10.5 7.0 - 11.0 FL LAB HEMETOLOGY METHOD 06/20/2025 1:13 PM [facility] NRBC 0.0 <1.0 % LAB HEMETOLOGY METHOD 06/20/2025 1:13 PM [facility] NRBC Absolute 0.00 <0.10 K/mcL LAB HEMETOLOGY METHOD 06/20/2025 1:13 PM [facility] Blood Venous blood specimen / Unknown Venipuncture / Unknown 06/20/2025 7:09 AM EST 06/20/2025 12:01 PM EST us Brandt Miles MD LAB BLOOD ORDERABLES Final Resul t [facility] ([facility]) [facility] [address] [place] [address], documented in this encounter Visit Diagnoses Diagnosis Essential (primary) hypertension Unspecified essential hypertension documented in this encounter Care Teams 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
== END 2025-07-11 15:47 | disposition home or self-care (01) ==
LOC: HO.HMCFMS 14:07
PROVIDERS: Visit Provider Student in an Organized Health Care Education/Training Program
DX: E11.9 Type 2 diabetes mellitus without complications (principal); I48.91 Unspecified atrial fibrillation; I50.20 Unspecified systolic (congestive) heart failure; I27.20 Pulmonary hypertension, unspecified; N95.0 Postmenopausal bleeding; N93.9 Abnormal uterine and vaginal bleeding, unspecified; R26.81 Unsteadiness on feet; L60.2 Onychogryphosis; R04.0 Epistaxis; R43.2 Parageusia; K59.00 Constipation, unspecified; R63.0 Anorexia; I35.9 Nonrheumatic aortic valve disorder, unspecified; I34.81 Nonrheumatic mitral (valve) annulus calcification; Z91.81 History of falling

== ENCOUNTER 2025-07-11 14:07 | Outpatient (REF) | payer OTHER, MEDICAID, SELFPAY ==
[2025-07-11 18:27] LABS: MANUAL DIFF FLAG NO
[2025-07-11 18:51] LABS: Hematocrit 39.1 % (37.0-47.0); Hemoglobin 12.1 g/dl (12.0-16.0); Imm Gran Abs Auto 0.02 X10*3/uL (0.00-0.03); Imm Gran Pct Auto 0.3 % (0.0-0.4); Lymphocytes Absolute Auto 1.9 X10*3/uL (1.2-4.9); Mean Corpuscular HGB Conc 30.9 g/dl (31.0-35.0); Mean Corpuscular Hemoglobin 27.9 pg (27.0-33.0); Mean Corpuscular Volume 90.1 fL (80.0-98.0); NRBC Abs Auto 0.000 X10*3/uL (0.0-0.012); NRBC Pct Auto 0.0 /100WBC (0.0-0.2); Platelet Count 374 X10*3/uL (160-400); Red Blood Count 4.34 X10*6/uL (4.20-5.50); White Blood Count 7.7 X10*3/uL (4.8-10.8)
[2025-07-11 19:04] LABS: Alanine Aminotransferase 11 U/L (0-31); Albumin Level 4.2 g/dL (3.5-5.0); Alkaline Phosphatase 94 U/L (39-117); Anion Gap 17 (12-20); Aspartate Amino Transferase 29 U/L (5-31); Blood Urea Nitrogen 23 mg/dL (9-16); Calcium 10.0 mg/dL (8.4-10.2); Carbon Dioxide 24 mmol/L (22-29); Chloride 99 mmol/L (96-108); Cholesterol 121 mg/dL (<200); Estimated Glomerular Filt Rate 36; HDL Cholesterol 45 mg/dL (>40); Magnesium 2.4 mg/dL (1.6-2.6); Potassium 4.1 mmol/L (3.3-5.1); Sodium 136 mmol/L (135-145); Total Protein 8.7 g/dL (6.5-8.0); Triglycerides 79 mg/dL (<150)
[2025-07-11 19:37] LABS: Folate 3.5 ng/mL (> or = 4.0); Vitamin B12 879 pg/mL (200-900)
[2025-07-12 07:41] LABS: Syphilis Screen Nonreactive (Nonreactive)
[2025-07-12 07:49] LABS: HBS Num1 0.00 mIU/mL (0-7.99); HBsAGNum1 0.41 S/CO (0.00-0.99); HIV Num 1 0.07 S/CO (0.00-0.99); Hepatitis B Surface Antigen Negative (Negative); ~HepC Num1 0.33 S/CO (0.00-0.79); ~Hepatitis B Surface Antibody NONREACTIVE (Nonreactive); ~Hepatitis C Antibody Nonreactive (Nonreactive)
[2025-07-13 22:03] LABS: Vitamin D 25-OH, D2 <4 ng/mL; Vitamin D 25-OH, D3 47 ng/mL; Vitamin D 25-OH, Total 47 ng/mL (30-100)
== END 2025-07-11 14:08 | disposition home or self-care (01) ==
LOC: HO.HKASLDS 14:07
PROVIDERS: PCP Student in an Organized Health Care Education/Training Program; Visit Provider Student in an Organized Health Care Education/Training Program
DX: I34.81 Nonrheumatic mitral (valve) annulus calcification (principal); I48.91 Unspecified atrial fibrillation; R26.89 Other abnormalities of gait and mobility; N95.0 Postmenopausal bleeding; R04.0 Epistaxis; R43.2 Parageusia; K59.00 Constipation, unspecified; R26.81 Unsteadiness on feet; L60.2 Onychogryphosis; R63.0 Anorexia; E11.22 Type 2 diabetes mellitus with diabetic chronic kidney disease; I13.0 Hypertensive heart and chronic kidney disease with heart failure and stage 1 through stage 4 chronic kidney disease, or unspecified chronic kidney disease; I50.20 Unspecified systolic (congestive) heart failure; I27.20 Pulmonary hypertension, unspecified; I35.9 Nonrheumatic aortic valve disorder, unspecified; G47.00 Insomnia, unspecified; N18.9 Chronic kidney disease, unspecified; Z91.81 History of falling; Z71.89 Other specified counseling
CPT/HCPCS: 36415; 80053; 80061; 82306; 82607; 82746; 83036; 83735; 84443; 85025; 86706; 86780; 86803; 87340; 87389; 96127; 99499